=== PATIENT | female | born 1980 | race Caucasian/White ===

== ENCOUNTER 2017-09-26 20:18 | Emergency (ER) | payer BC ==
[2017-09-26] MEDS ORDERED: Ibuprofen TAB* 600 MG PO ONE (22:56)
--- NOTE | 2017-09-26 23:12 | ED ---
Lower Extremity - HPI Summary HPI Summary: This is alfredo Rivera documenting for Dr. Theo Carlos MD. Pt is a 36 y/o F who presents to ED c/o pain in left foot. She hurt her right ankle 3 days ago playing softball and couldnt bear weight on it. This caused her to trip and fall, injuring her left foot. Standing and movement exacerbate her pain. Rates her pain as a 3/10 in severity at triage. - History of Current Complaint Chief Complaint: EDExtremityLower Stated Complaint: LEFT FOOT/RIGHT ANKLE INJURY Time Seen by Provider: 09/26/17 22:48 Hx Obtained From: Patient Hx Last Menstrual Period: 04/06/15 Mechanism Of Injury: Fall From A Standing Position Onset/Duration: Still Present Severity Currently: Mild Pain Intensity: 3 Pain Scale Used: 0-10 Numeric Timing: Lasting Hours Aggravating Factor(s): Standing, Ambulation - Allergies/Home Medications Allergies/Adverse Reactions: Allergies Allergy/AdvReac Type Severity Reaction Status Date / Time shellfish derived Allergy Severe Anaphylatic Verified 09/26/17 20:24 Shock delaney AdvReac Intermediate Palpitation Verified 09/26/17 20:24 s moxifloxacin [From Avelox] AdvReac Intermediate Itching Verified 09/26/17 20:24 PMH/Surg Hx/FS Hx/Imm Hx Endocrine/Hematology History: Reports: Hx Thyroid Disease - Thyroid nodule. Biopsy: benign. Denies: Hx Anticoagulant Therapy, Hx Diabetes, Hx Anemia Cardiovascular History: Denies: Hx Congestive Heart Failure, Hx Deep Vein Thrombosis, Hx Hypertension , Hx Myocardial Infarction, Hx Pacemaker/ICD Respiratory History: Reports: Hx Asthma - A CHILD Denies: Hx Chronic Obstructive Pulmonary Disease (COPD), Hx Lung Cancer, Hx Pneumonia, Hx Pulmonary Embolism GI History: Denies: Hx Gall Bladder Disease, Hx Gastrointestinal Bleed, Hx Jaundice, Hx Ulcer, Hx Urosepsis History: Denies: Hx Kidney Stones, Hx Renal Disease Musculoskeletal History: Reports: Hx Arthritis - NECK, JOINT ACHES Sensory History: Denies: Hx Contacts or Glasses, Hx Hearing Aid Opthamlomology History: Denies: Hx Contacts or Glasses Neurological History: Denies: Hx Dementia, Hx Migraine, Hx Seizures, Hx Transient Ischemic Attacks (TIA) Psychiatric History: Reports: Hx Anxiety - ON MEDICATION FOR, Hx Depression - ON MEDICATION FOR Denies: Hx Panic Disorder - Surgical History Surgery Procedure, Year, and Place: c section x 2, left breast lumpectomy- BENIGN. WISDOM TEETH-1999. TONSILECTOMY Hx Anesthesia Reactions: No Infectious Disease History: No Infectious Disease History: Reports: Hx Shingles Denies: Traveled Outside the [place] in Last 30 Days - Family History Known Family History: Positive: Hypertension - Social History Alcohol Use: Occasionally Substance Use Type: Reports: None Smoking Status (MU): Former Smoker Amount Used/How Often: < 1/2 PPD X 3 YEARS Have You Smoked in the Last Year: No Review of Systems Negative: Fever Positive: Other - left foot pain All Other Systems Reviewed And Are Negative: Yes Physical Exam - Summary Physical Exam Summary: Appearance: Well appearing, no pain distress Skin: warm, dry, reflects adequate perfusion Head/face: normal Eyes: EOMI, [place] ENT: normal Neck: supple, non-tender Respiratory: CTA, breath sounds present Cardiovascular: RRR, pulses symmetrical Abdomen: non-tender, soft Bowel: present Musculoskeletal: tenderness over left foot on lateral aspect, strength/ROM intact Neuro: normal, sensory motor intact, A&Ox3 Triage Information Reviewed: Yes Vital Signs On Initial Exam: Initial Vitals Temp Pulse Resp BP Pulse Ox 98.1 F 100 20 125/84 97 09/26/17 20:19 09/26/17 20:19 09/26/17 20:19 09/26/17 20:19 09/26/17 20:19 Vital Signs Reviewed: Yes Diagnostics - Vital Signs Vital Signs Temp Pulse Resp BP Pulse Ox 09/26/17 20:19 98.1 F 100 20 125/84 97 - Laboratory Lab Statement: Any lab studies that have been ordered have been reviewed, and results considered in the medical decision making process. - Radiology Right Foot X-Ray Radiology Interpretation Completed By: ED Physician - Negative Left Foot X-Ray Radiology Interpretation Completed By: ED Physician - Negative Bilateral Ankle X-Ray Radiology Interpretation Completed By: ED Physician - Negative Lower Extremity Course/Dx - Course Course Of Treatment: Pt is a 36 y/o F who presents to ED c/o pain in left foot. She hurt her right ankle on 3 days ago playing softball and couldnt bear weight on it, so she tripped and fell injuring her left foot. Rates her pain as a 3/10 in severity at triage. Right foot x-ray is negative. Left foot x-ray is negative. Bilateral ankle x-ray is negative. Pt refuses splint. Pt is diagnosed with left ankle sprain and left foot pain. She is discharged and told to follow up with orthopedics. Pt is agreeable with this plan. - Diagnoses Differential Diagnosis/HQI/PQRI: Positive: Contusion, Fracture (Closed), Sprain Provider Diagnoses: Left ankle sprain, Left foot pain Discharge - Sign-Out/Discharge Documenting (check all that apply): Patient Departure - Discharge - Discharge Plan Condition: Stable Disposition: HOME Patient Education Materials: Ankle Sprain (ED) Referrals: Lissa Scanlon MD [Primary Care Provider] - 3 Days Geri Hawthorne MD [Medical Doctor] - 2 Days Additional Instructions: RETURN TO ED FOR ANY NEW OR WORSENING SYMPTOMS. - Billing Disposition and Condition Condition: STABLE Disposition: Home
[2017-09-26 23:18] VITALS: BP 114/79
--- NOTE | 2017-09-27 07:48 | RAD ---
INDICATION: Bilateral foot and ankle pain COMPARISON: Right ankle radiograph July 31, 2009 TECHNIQUE: 3 views of each foot and 3 views of each ankle were obtained. FINDINGS: The adequately corticated bones are properly aligned. Joint spaces appear maintained. No fracture, dislocation or focal bony abnormality is seen. IMPRESSION: NO RADIOGRAPHICALLY APPARENT FRACTURE OR DISLOCATION OF THE BILATERAL FEET OR ANKLES. If the patient's symptoms persist, follow-up imaging is recommended. R0
== END 2017-09-26 23:16 | disposition home or self-care (01) ==
LOC: ED 20:18
DX: S93.402A Sprain of unspecified ligament of left ankle, initial encounter (principal); M79.672 Pain in left foot; W19.XXXA Unspecified fall, initial encounter; Y93.64 Activity, baseball; Y92.9 Unspecified place or not applicable; Z87.891 Personal history of nicotine dependence
CPT/HCPCS: 99282; A9270-GY

== ENCOUNTER 2018-04-25 21:50 | Emergency (ER) | payer BC ==
[2018-04-25 23:12] LABS: ABS Basophils 0 10^3/ul (0-0.2); ABS Eosinophils 0.1 10^3/ul (0-0.6); ABS Monocytes 0.6 10^3/ul (0-0.8); ABS Neutrophils 6.9 10^3/ul (1.5-7.7); ABS Nucleated RBC 0 10^3/ul; Eosinophil % 1.1 %; Hematocrit 36 % (35-47); Hemoglobin 12.4 g/dl (12.0-16.0); Lymphocyte % 20.8 %; Mean Corpuscular HGB Conc 35 g/dl (31-36); Mean Corpuscular Hemoglobin 30 pg (27-31); Mean Corpuscular Volume 87 fL (80-97); Mean Platelet Volume 6.3 fL (7.4-10.4); Nucleated Red Blood Cells % 0; Platelet Count 284 10^3/ul (150-450); Red Blood Count 4.09 10^6/ul (4.00-5.40); Red Cell Distribution Width 13 % (10.5-15); White Blood Count 9.7 10^3/ul (3.5-10.8)
[2018-04-25 23:37] LABS: Albumin 4.2 g/dL (3.2-5.2); Albumin/Globulin Ratio 1.8 (1-3); BUN/Creatinine Ratio 14.6 (8-20); C Reactive Protein 2.22 mg/L (<8.01); Calcium 9.4 mg/dL (8.6-10.3); EGFR Non-African American 79.3 (>60); Globulin 2.4 g/dL (2-4); Potassium 3.8 mmol/L (3.5-5.0); Total Bilirubin 0.3 mg/dL (0.2-1.0); Total Protein 6.6 g/dL (6.4-8.9)
[2018-04-25 23:58] LABS: TSH (Thyroid Stimulating Horm) 3.6 mcIU/mL (0.34-5.60)
--- NOTE | 2018-04-26 00:16 | ED ---
Throat Pain/Nasal Congestion - HPI Summary HPI Summary: Patient with history of thyroid nodule complains of sudden onset sensation of lump at base of right throat with difficulty swallowing. Patient concerned nodule may have enlarged. States last evaluation of biopsy was 3 years ago. Denies fever, cough, CP, SOB, N/V/D, abdominal pain, change in urine, change in BM. Tolerating fluids, but is afraid to eat as she is concerned that food will not pass. - History of Current Complaint Chief Complaint: EDGeneral Time Seen by Provider: 04/25/18 22:12 Hx Obtained From: Patient Onset/Duration: Sudden Onset, Lasting Days Severity: Moderate Associated Signs And Symptoms: Positive: Dysphagia Cough: None - Allergies/Home Medications Allergies/Adverse Reactions: Allergies Allergy/AdvReac Type Severity Reaction Status Date / Time shellfish derived Allergy Severe Anaphylatic Verified 09/26/17 20:24 Shock delaney AdvReac Intermediate Palpitation Verified 09/26/17 20:24 s moxifloxacin [From Avelox] AdvReac Intermediate Itching Verified 09/26/17 20:24 PMH/Surg Hx/FS Hx/Imm Hx Endocrine/Hematology History: Reports: Hx Thyroid Disease - Thyroid nodule. Biopsy: benign. Denies: Hx Anticoagulant Therapy, Hx Diabetes, Hx Anemia Cardiovascular History: Denies: Hx Congestive Heart Failure, Hx Deep Vein Thrombosis, Hx Hypertension , Hx Myocardial Infarction, Hx Pacemaker/ICD Respiratory History: Reports: Hx Asthma - A CHILD Denies: Hx Chronic Obstructive Pulmonary Disease (COPD), Hx Lung Cancer, Hx Pneumonia, Hx Pulmonary Embolism GI History: Denies: Hx Gall Bladder Disease, Hx Gastrointestinal Bleed, Hx Jaundice, Hx Ulcer, Hx Urosepsis History: Denies: Hx Kidney Stones, Hx Renal Disease Musculoskeletal History: Reports: Hx Arthritis - NECK, JOINT ACHES Sensory History: Denies: Hx Contacts or Glasses, Hx Hearing Aid Opthamlomology History: Denies: Hx Contacts or Glasses Neurological History: Denies: Hx Dementia, Hx Migraine, Hx Seizures, Hx Transient Ischemic Attacks (TIA) Psychiatric History: Reports: Hx Anxiety - ON MEDICATION FOR, Hx Depression - ON MEDICATION FOR Denies: Hx Panic Disorder - Surgical History Surgery Procedure, Year, and Place: c section x 2, left breast lumpectomy- BENIGN. WISDOM TEETH-1999. TONSILECTOMY Hx Anesthesia Reactions: No Infectious Disease History: No Infectious Disease History: Reports: Hx Shingles Denies: Traveled Outside the [place] in Last 30 Days - Family History Known Family History: Positive: Hypertension - Social History Alcohol Use: Occasionally Substance Use Type: Reports: None Smoking Status (MU): Former Smoker Amount Used/How Often: < 1/2 PPD X 3 YEARS Have You Smoked in the Last Year: No Review of Systems Constitutional: Negative Eyes: Negative Positive: Other Cardiovascular: Negative Respiratory: Negative Gastrointestinal: Negative Genitourinary: Negative Musculoskeletal: Negative Skin: Negative Neurological: Negative Psychological: Normal All Other Systems Reviewed And Are Negative: Yes Physical Exam - Summary Physical Exam Summary: No obvious deformity or mass or nodule noted on physical exam of throat. Oropharyngeal exam normal. Triage Information Reviewed: Yes Vital Signs On Initial Exam: Initial Vitals Temp Pulse Resp BP Pulse Ox 98.6 F 123 16 139/108 98 04/25/18 22:03 04/25/18 22:03 04/25/18 22:03 04/25/18 22:03 04/25/18 22:03 Vital Signs Reviewed: Yes Appearance: Positive: Well-Appearing Skin: Positive: Warm Head/Face: Positive: Normal Head/Face Inspection Eyes: Positive: Normal ENT: Positive: Normal ENT inspection Neck: Positive: Supple Respiratory/Lung Sounds: Positive: Clear to Auscultation Cardiovascular: Positive: Normal Abdomen Description: Positive: Nontender Musculoskeletal: Positive: Normal Neurological: Positive: Normal Psychiatric: Positive: Normal AVPU Assessment: Alert - [place] Coma Scale Best Eye Response: 4 - Spontaneous Best Motor Response: 6 - Obeys Commands Best Verbal Response: 5 - Oriented Coma Scale Total: 15 Diagnostics - Vital Signs Vital Signs Temp Pulse Resp BP Pulse Ox 04/26/18 00:00 94 96 04/25/18 23:00 101 97 04/25/18 22:33 108 96 04/25/18 22:03 98.6 F 123 16 139/108 98 - Laboratory Lab Results: Lab Results 04/25/18 04/25/18 Range/Units 23:06 23:06 WBC 9.7 (3.5-10.8) 10^3/ul RBC 4.09 (4.00-5.40) 10^6/ul Hgb 12.4 (12.0-16.0) g/dl Hct 36 (35-47) % MCV 87 (80-97) fL MCH 30 (27-31) pg MCHC 35 (31-36) g/dl RDW 13 (10.5-15) % Plt Count 284 (150-450) 10^3/ul MPV 6.3 L (7.4-10.4) fL Neut % (Auto) 71.4 % Lymph % (Auto) 20.8 % Irwin % (Auto) 6.2 % Eos % (Auto) 1.1 % Baso % (Auto) 0.5 % Absolute Neuts (auto) 6.9 (1.5-7.7) 10^3/ul Absolute Lymphs (auto) 2.0 (1.0-4.8) 10^3/ul Absolute Monos (auto) 0.6 (0-0.8) 10^3/ul Absolute Eos (auto) 0.1 (0-0.6) 10^3/ul Absolute Basos (auto) 0 (0-0.2) 10^3/ul Absolute Nucleated RBC 0 10^3/ul Nucleated RBC % 0 Sodium 137 (135-145) mmol/L Potassium 3.8 (3.5-5.0) mmol/L Chloride 105 (101-111) mmol/L Carbon Dioxide 25 (22-32) mmol/L Anion Gap 7 (2-11) mmol/L BUN 12 (6-24) mg/dL Creatinine 0.82 (0.51-0.95) mg/dL Est GFR ( Amer) 96.0 (>60) Est GFR (Non-Af Amer) 79.3 (>60) BUN/Creatinine Ratio 14.6 (8-20) Glucose 102 H (70-100) mg/dL Calcium 9.4 (8.6-10.3) mg/dL Total Bilirubin 0.30 (0.2-1.0) mg/dL AST 15 (13-39) U/L ALT 13 (7-52) U/L Alkaline Phosphatase 90 (34-104) U/L C-Reactive Protein 2.22 (<8.01) mg/L Total Protein 6.6 (6.4-8.9) g/dL Albumin 4.2 (3.2-5.2) g/dL Globulin 2.4 (2-4) g/dL Albumin/Globulin Ratio 1.8 (1-3) TSH 3.60 (0.34-5.60) mcIU/mL Result Diagrams: 04/25/18 23:06 04/25/18 23:06 Lab Statement: Any lab studies that have been ordered have been reviewed, and results considered in the medical decision making process. EENT Course/Dx - Course Course Of Treatment: Patient with history of thyroid nodule complains of sudden onset sensation of lump at base of right throat with difficulty swallowing. Patient concerned nodule may have enlarged. States last evaluation of biopsy was 3 years ago. Denies fever, cough, CP, SOB, N/V/D, abdominal pain, change in urine, change in BM. Tolerating fluids, but is afraid to eat as she is concerned that food will not pass. Physical exam:No obvious deformity or mass or nodule noted on physical exam of throat. Oropharyngeal exam normal. Vital signs within normal limits. No work of breathing. Ultrasound soft tissue neck negative except for existing thyroid nodule. Dimensions in 2015 or 3.4 cm x 2.1 cm x 3.4 cm. Current measurement of nodule is 2.7 cm 2.5 cm 2.4 cm. X- ray soft tissue neck negative. - Diagnoses Provider Diagnoses: Dysphagia Discharge - Sign-Out/Discharge Documenting (check all that apply): Patient Departure Patient Received Moderate/Deep Sedation with Procedure: No - Discharge Plan Condition: Stable Disposition: HOME Patient Education Materials: Dysphagia (ED), Thyroid Nodules (ED) Referrals: Lissa Scanlon MD [Primary Care Provider] - Ervin Valdovinos MD [Medical Doctor] - Additional Instructions: Follow-up with Dr. valdovinos for further evaluation. Return to the ED for any new or worsening symptoms. - Billing Disposition and Condition Condition: STABLE Disposition: Home
[2018-04-26 01:49] VITALS: BP 125/84
== END 2018-04-26 01:55 | disposition home or self-care (01) ==
LOC: ED 21:50
DX: R13.10 Dysphagia, unspecified (principal); E04.1 Nontoxic single thyroid nodule; F41.9 Anxiety disorder, unspecified; F32.9 Major depressive disorder, single episode, unspecified; Z88.1 Allergy status to other antibiotic agents; Z91.013 Allergy to seafood; Z91.018 Allergy to other foods; Z87.891 Personal history of nicotine dependence
CPT/HCPCS: 36415; 70360; 76536; 80053; 84443; 85025; 86140; 99283

== ENCOUNTER 2023-09-13 09:41 | Inpatient (IN) ==
[2023-09-13 11:45] LABS: Venous Bicarbonate HCO3 23.1 mmol/L (24-28)
[2023-09-13 11:50] LABS: ABS Lymphocytes 1.4 10^3/uL (1.0-4.8); ABS Monocytes 0.4 10^3/uL (0.0-0.9); ABS Neutrophils 5.1 10^3/uL (1.5-7.6); Eosinophil % 0.2 %; Hematocrit 39.1 % (35-45); Hemoglobin 13.5 g/dL (11.5-14.3); Lymphocyte % 19.7 %; Mean Corpuscular Hemoglobin 30.9 pg (27-33); Mean Corpuscular Hgb Conc 34.7 g/dL (31-36); Mean Corpuscular Volume 89.2 fL (80-97); Mean Platelet Volume 6.6 fL (7.5-11.2); Platelet Count 327 10^3/uL (150-450); Red Blood Count 4.38 10^6/uL (3.63-4.92); Red Cell Distribution Width 12.6 % (12-17); White Blood Count 6.9 10^3/uL (3.8-11.8)
[2023-09-13] MEDS: Lactated Ringers 1000 ml BAG 1,000 ML IV ONE (12:11)
[2023-09-13 12:50] LABS: Albumin/Globulin Ratio 2.4 (1-3); Calcium 9.9 mg/dL (8.6-10.3); Creatinine, Serum 0.89 mg/dL (0.51-0.95); Globulin 2.1 g/dL (2-4); Magnesium 1.9 mg/dL (1.9-2.7); Total Bilirubin 0.5 mg/dL (0.2-1.0); Total Protein 7.1 g/dL (6.4-8.9)
[2023-09-13] MEDS ORDERED: fentaNYL 100 mcg/2 ml 50 MCG/ML VIAL ONE (16:26)
[2023-09-13] MEDS ORDERED: Propofol 10 MG/ML 20 ML BTL ONE ×2 (16:26→17:14)
[2023-09-13] MEDS ORDERED: Lidocaine 2% PF 5 ML VIAL ONE (16:26)
[2023-09-14 05:31] LABS: Hematocrit 32.7 % (35-45); Hemoglobin 11.4 g/dL (11.5-14.3); Mean Corpuscular Hgb Conc 34.9 g/dL (31-36); Mean Corpuscular Volume 88.8 fL (80-97); Mean Platelet Volume 6.7 fL (7.5-11.2); Platelet Count 277 10^3/uL (150-450); Red Blood Count 3.69 10^6/uL (3.63-4.92); Red Cell Distribution Width 12.6 % (12-17); White Blood Count 6.7 10^3/uL (3.8-11.8)
[2023-09-14 05:50] LABS: ALT 11 U/L (7-52); AST 12 U/L (13-39); Albumin 3.9 g/dL (3.2-5.2); Albumin/Globulin Ratio 2.4 (1-3); Alkaline Phosphatase 75 U/L (35-149); Anion Gap 7 mmol/L (2-16); Blood Urea Nitrogen 10 mg/dL (6-24); CO2 Carbon Dioxide 25 mmol/L (22-32); Calcium 8.8 mg/dL (8.6-10.3); Chloride 107 mmol/L (101-111); Creatinine, Serum 0.92 mg/dL (0.51-0.95); Globulin 1.6 g/dL (2-4); Glucose 83 mg/dL (70-100); Magnesium 1.7 mg/dL (1.9-2.7); Potassium 3.9 mmol/L (3.5-5.0); Sodium 139 mmol/L (135-145); Total Bilirubin 0.5 mg/dL (0.2-1.0); Total Protein 5.5 g/dL (6.4-8.9); eGFR CKD-EPI 80.7 (>60)
[2023-09-14] MEDS ORDERED: Lorazepam PYXIS KEY PRN ×2 (08:07→08:15)
[2023-09-14] MEDS: Metoprolol Tartrate 5 mg VIAL 5 ml VIAL (1 mg/ml) IV ONE ×2 (08:25→13:27)
[2023-09-14] MEDS: LORazepam 2 mg VIAL 1 ml ONE ×2 (08:52→13:27)
[2023-09-14] MEDS: LORazepam 2 mg VIAL 1 ml IV PUSH ONE ×3 (08:52→12:38)
[2023-09-14] MEDS: Metoprolol Tartrate 5 mg VIAL 5 ml VIAL (1 mg/ml) ONE (08:53)
[2023-09-14] MEDS: Magnesium Sulfate 2 gm BAG 2 GM/50 ML BAG IVPB ONE (09:20)
[2023-09-14 10:14] LABS: High Sensitivity Troponin 1 Hr < 3 pg/mL (<15)
[2023-09-14] MEDS ORDERED: LORazepam 2 MG/ML 1 mL Syringe IV ONE (12:22)
[2023-09-14 15:53] LABS: % Iron Saturation 20 % (15-55); .Transferrin 233 mg/dL (203-362); Iron 65 ug/dL (50-212); Total Iron Binding Capacity 326 mcg/dL (250-450); Unsaturated Iron Binding 261 ug/dL
[2023-09-14 16:07] LABS: Ferritin 30.6 ng/mL (11-307)
[2023-09-14 16:12] LABS: Folate > 20.00 ng/mL (5.90-24.80)
[2023-09-14 16:57] LABS: Vitamin B12 1086 pg/mL (180-914)
[2023-09-14] MEDS: Potassium EFFERVES 25 meq TAB PO ONE (18:21)
[2023-09-15] MEDS: Metoprolol Tartrate 5 mg VIAL 5 ml VIAL (1 mg/ml) IV PRN (05:15)
[2023-09-15 05:39] LABS: ABS Eosinophils 0.1 10^3/uL (0.0-0.5); ABS Lymphocytes 1.9 10^3/uL (1.0-4.8); ABS Monocytes 0.6 10^3/uL (0.0-0.9); ABS Neutrophils 5.5 10^3/uL (1.5-7.6); ABS Nucleated RBC 0.01 10^3/ul; Eosinophil % 1.3 %; Hematocrit 37.6 % (35-45); Hemoglobin 13.5 g/dL (11.5-14.3); Lymphocyte % 23.8 %; Mean Corpuscular Hemoglobin 31.6 pg (27-33); Mean Corpuscular Hgb Conc 35.9 g/dL (31-36); Mean Corpuscular Volume 88.2 fL (80-97); Mean Platelet Volume 6.6 fL (7.5-11.2); Nucleated Red Blood Cells % 0.1 %/100WBC (0.0-0.8); Platelet Count 314 10^3/uL (150-450); Red Blood Count 4.27 10^6/uL (3.63-4.92); Red Cell Distribution Width 12.4 % (12-17); White Blood Count 8.2 10^3/uL (3.8-11.8)
[2023-09-15 05:59] LABS: Calcium 9.5 mg/dL (8.6-10.3); Creatinine, Serum 0.88 mg/dL (0.51-0.95); Potassium 4.1 mmol/L (3.5-5.0); eGFR CKD-EPI 85.1 (>60)
[2023-09-15] MEDS: Sulfur Hexaflouride MICROSPHR 25 MG VIAL IV ONE (08:50)
[2023-09-16 06:02] LABS: ABS Eosinophils 0.2 10^3/uL (0.0-0.5); ABS Lymphocytes 1.8 10^3/uL (1.0-4.8); ABS Monocytes 0.5 10^3/uL (0.0-0.9); ABS Neutrophils 3.3 10^3/uL (1.5-7.6); Eosinophil % 2.9 %; Hemoglobin 12.6 g/dL (11.5-14.3); Lymphocyte % 30.4 %; Mean Corpuscular Hemoglobin 31.1 pg (27-33); Mean Corpuscular Volume 88.9 fL (80-97); Mean Platelet Volume 6.9 fL (7.5-11.2); Nucleated Red Blood Cells % 0.1 %/100WBC (0.0-0.8); Platelet Count 300 10^3/uL (150-450); Red Blood Count 4.05 10^6/uL (3.63-4.92); Red Cell Distribution Width 12.5 % (12-17); White Blood Count 5.9 10^3/uL (3.8-11.8)
[2023-09-16 06:21] LABS: Calcium 9.2 mg/dL (8.6-10.3); Creatinine, Serum 0.94 mg/dL (0.51-0.95); Magnesium 1.7 mg/dL (1.9-2.7); Potassium 4.3 mmol/L (3.5-5.0); eGFR CKD-EPI 78.7 (>60)
[2023-09-16] MEDS: Magnesium Sulfate 2 gm BAG 2 GM/50 ML BAG IVPB ONE (07:35)
[2023-09-16 09:51] VITALS: BP 114/77
[2023-09-16 15:23] LABS: Maltase >236.2 (>=70.0); Palatinase 18.8 (>=6.0)
[2023-09-20 12:03] LABS: Plasma Free Metanephrine 0.29 nmol/L (<0.50); Plasma Free Normetanephrine 0.41 nmol/L (<0.90)
== END 2023-09-16 12:19 | disposition home or self-care (01) | DRG 201 ==
LOC: ED 09:41 → EDHOLD 09:41 → SUATTDRO 20:07 → SSU 20:29 → MEDTELE 09-14 12:52
PROVIDERS: ADMIT Internal Medicine; ATTEND Internal Medicine
PROC: O.GIEGD (2023-09-13 15:05)